=== PATIENT | female | born 1970 | race African-American/Black ===

== ENCOUNTER → 2018-03-05 | Outpatient (CLI) | payer OTHER ==
[~2018-03-05] MED LIST: FLEXERIL PO; NORCO 5-325 TA1 EACH PO
== END ==
LOC: M.RAD 07:00
DX: Z12.31 Encounter for screening mammogram for malignant neoplasm of breast (principal)

== ENCOUNTER 2018-06-27 08:53 | Emergency (ER) | payer OTHER ==
[~2018-06-27] VITALS: Ht 175.3 cm; Wt 93.4 kg
[2018-06-27] MEDS ORDERED: NORCO 5-325 TA1 EACH PO (09:14)
[2018-06-27] MEDS ORDERED: FLEXERIL PO (09:14)
[2018-06-27 09:21] VITALS: BP 129/69
== END 2018-06-27 09:22 | disposition home or self-care (01) ==
LOC: M.ERS 08:53
DX: S16.1XXA Strain of muscle, fascia and tendon at neck level, initial encounter (principal); V49.49XA Driver injured in collision with other motor vehicles in traffic accident, initial encounter; Y93.89 Activity, other specified; Y92.89 Other specified places as the place of occurrence of the external cause; Y99.8 Other external cause status